=== PATIENT | male | born 1990 | race African-American/Black ===

== ENCOUNTER 2017-11-29 11:05 | Emergency (ER) | payer SELFPAY ==
[~2017-11-29] VITALS: Ht 172.7 cm; Wt 70.0 kg
[2017-11-29 11:07] VITALS: BP 131/84
== END 2017-11-29 12:43 | disposition left against medical advice (07) ==
LOC: ER 11:05
DX: Z53.21 Procedure and treatment not carried out due to patient leaving prior to being seen by health care provider (principal)

== ENCOUNTER 2019-03-13 10:26 | Emergency (ER) | payer SELFPAY ==
[~2019-03-13] VITALS: Ht 182.9 cm; Wt 90.0 kg
[2019-03-13] MEDS ORDERED: ONDANSETRON HCL 4MG/2ML INJ IV STA (11:05)
[2019-03-13] MEDS ORDERED: SODIUM CHLORIDE 0.9% 1,000 ML IV ONE (11:05)
[2019-03-13] MEDS ORDERED: LORAZEPAM 2MG/ML CPJ IV ONE (11:15)
[2019-03-13 11:30] LABS: BASOPHILS % 0.4 % (0.0-2.0); EOSINOPHILS % 0.1 % (0.0-5.0); HEMATOCRIT. 45.3 % (42.0-52.0); HEMOGLOBIN. 14.8 g/dL (14.0-18.0); LYMPHOCYTES % 11.1 % (20.0-50.0); MEAN CORPUSCULAR HEMOGLOBIN 27.2 pg (28.0-32.0); MEAN CORPUSCULAR VOLUME 83.1 fL (80.0-94.0); MEAN PLATELET VOLUME 7.6 fl (7.4-10.4); MONOCYTES % 5.5 % (2.0-8.0); NEUTROPHILS % 82.9 % (40.0-76.0); PLATELET 242 x1000/uL (130-400); RED BLOOD CELL COUNT 5.45 mill/uL (4.7-6.1); RED CELL DISTRIBUTION WIDTH 16.5 % (11.6-14.6)
[2019-03-13 11:34] LABS: CHLORIDE 101 mEq/L (98-107)
[2019-03-13 11:35] LABS: INR 0.9; PROTHROMBIN TIME 9.5 sec (9.6-11.0)
[2019-03-13 11:39] LABS: ETHANOL BLOOD < 10 mg/dL
[2019-03-13] MEDS ORDERED: LORAZEPAM 1MG TABLET PO ONE (13:30)
[2019-03-13 14:20] LABS: CLARITY URINE CLEAR (CLEAR); COLOR URINE ORANGE (YELLOW); KETONES URINE 3+ (NEGATIVE); LEUKOCYTE ESTERASE URINE TRACE (NEGATIVE); NITRITE URINE NEGATIVE (NEGATIVE); OCCULT BLOOD URINE NEGATIVE (NEGATIVE); PH URINE >=9.0 (4.5-8.0); PROTEIN URINE 2+ (NEGATIVE); SPECIFIC GRAVITY URINE 1.028 (1.005-1.030)
[2019-03-13 14:36] LABS: *AMPHETAMINES SCREEN URINE NEGATIVE (NEGATIVE); *BARBITURATES SCREEN URINE NEGATIVE (NEGATIVE); *BENZODIAZEPINES SCREEN URINE NEGATIVE (NEGATIVE); *COCAINE SCREEN URINE NEGATIVE (NEGATIVE); METHADONE URINE SCREEN NEGATIVE (NEGATIVE); OPIATES URINE SCREEN NEGATIVE (NEGATIVE); PHENCYCLIDINE URINE SCREEN NEGATIVE (NEGATIVE)
[2019-03-13 14:37] LABS: CANNABINOID URINE SCREEN PRESUMTIVE POSITIVE (NEGATIVE)
[2019-03-13 15:24] VITALS: BP 128/78
== END 2019-03-13 15:25 | disposition home or self-care (01) ==
LOC: ER 10:26
DX: F10.239 Alcohol dependence with withdrawal, unspecified (principal); R11.10 Vomiting, unspecified; J45.909 Unspecified asthma, uncomplicated; Y90.0 Blood alcohol level of less than 20 mg/100 ml
CPT/HCPCS: 36415; 71045; 74176; 80053; 80305; 80320; 81003; 83690; 85025; 85610; 96374; 96375; 99284; J2060; J2405; J7030; G0480